=== PATIENT | female | born 1980 | race Caucasian/White ===

== ENCOUNTER → 2016-08-09 | Outpatient (CLI) | payer OTHER | LOC: RAD 16:32 | DX: M25.572 Pain in left ankle and joints of left foot (principal); M79.672 Pain in left foot; M79.89 Other specified soft tissue disorders | CPT/HCPCS: 73610; 73630 ==

== ENCOUNTER → 2016-08-12 | Outpatient (CLI) | payer OTHER | LOC: EMI 10:54 | DX: S99.912S Unspecified injury of left ankle, sequela (principal) | CPT/HCPCS: 73721 ==

== ENCOUNTER 2017-01-19 10:01 | Emergency (ER) | payer OTHER ==
[2017-01-19 11:32] LABS: HEMOGLOBIN 13.9 gm/dl (12.3-15.3); RED BLOOD COUNT 5.14 M/UL (4.00-5.10); WHITE BLOOD COUNT 13.8 K/UL (4.5-11.0)
[2017-01-19 11:55] LABS: BUN/CREATININE RATIO 22 (0-10)
== END 2017-01-19 18:17 | disposition home or self-care (01) ==
LOC: ER1 10:01
PROVIDERS: Physician Assistant
DX: R10.11 Right upper quadrant pain (principal); R11.2 Nausea with vomiting, unspecified; R10.811 Right upper quadrant abdominal tenderness; R06.2 Wheezing
CPT/HCPCS: 36415; 71020; 76705; 80053; 81001; 82150; 83690; 84703; 85025; 96361; 96374; 96375; 99284; J2270; J2405; J7030; J7050; Q9962

== ENCOUNTER → 2021-05-24 | Outpatient (CLI) | payer OTHER ==
[~2021-05-24] MED LIST: BRINTELLIX10 MG PO; COLACE100 MG PO; IBUPROFEN800 MG PO; PERCOCET 5/325 T1 EA PO; VITAMIN B; VITAMIN D
[2021-05-24 09:27] LABS: HEMOGLOBIN 12.1 gm/dl (12.3-15.3); RED BLOOD COUNT 4.58 M/UL (4.00-5.10); WHITE BLOOD COUNT 10.5 K/UL (4.5-11.0)
== END ==
LOC: OPSV2 05-20 08:00
PROVIDERS: Obstetrics & Gynecology
DX: Z01.812 Encounter for preprocedural laboratory examination (principal); N93.9 Abnormal uterine and vaginal bleeding, unspecified
CPT/HCPCS: 36415; 81001; 85025

== ENCOUNTER → 2021-05-26 | Day surgery (SDC) | payer OTHER ==
[~2021-05-26] VITALS: Ht 172.7 cm; Wt 164.2 kg
== END | disposition home or self-care (01) ==
LOC: OR 07:30
DX: N93.9 Abnormal uterine and vaginal bleeding, unspecified (principal); K21.9 Gastro-esophageal reflux disease without esophagitis; E66.01 Morbid (severe) obesity due to excess calories; F41.9 Anxiety disorder, unspecified; F32.A Depression, unspecified; E78.5 Hyperlipidemia, unspecified; Z79.899 Other long term (current) drug therapy; Z88.1 Allergy status to other antibiotic agents; Z68.43 Body mass index [BMI] 50.0-59.9, adult
CPT/HCPCS: 84703; J0690; J1170; J1885; J2001; J2250; J2405; J2550; J2704; J3010; J7030; J7120

== ENCOUNTER 2021-12-29 12:38 | Emergency (ER) | payer OTHER | END 2021-12-29 14:53 | disposition home or self-care (01) | LOC: ER1 12:38 | DX: S46.911A Strain of unspecified muscle, fascia and tendon at shoulder and upper arm level, right arm, initial encounter (principal); I10 Essential (primary) hypertension; W18.30XA Fall on same level, unspecified, initial encounter | CPT/HCPCS: 73030; 99283 ==